=== PATIENT | female | born 2000 | race African-American/Black ===

== ENCOUNTER 2019-11-26 22:07 | Emergency (ER) | payer OTHER ==
[~2019-11-26] VITALS: Ht 162.6 cm; Wt 62.0 kg
[2019-11-26] MEDS ORDERED: KETOROLAC 30MG/ML VIAL IV STA (22:43)
[2019-11-26 23:29] LABS: CHLORIDE 107 mEq/L (98-107)
[2019-11-26 23:30] LABS: CLARITY URINE CLOUDY (CLEAR); COLOR URINE YELLOW (YELLOW); KETONES URINE TRACE (NEGATIVE); LEUKOCYTE ESTERASE URINE 3+ (NEGATIVE); NITRITE URINE NEGATIVE (NEGATIVE); OCCULT BLOOD URINE NEGATIVE (NEGATIVE); PROTEIN URINE NEGATIVE (NEGATIVE); SPECIFIC GRAVITY URINE 1.024 (1.005-1.030)
[2019-11-27 01:48] VITALS: BP 124/73
== END 2019-11-27 01:50 | disposition home or self-care (01) ==
LOC: ER 22:58
DX: S10.81XA Abrasion of other specified part of neck, initial encounter (principal); M25.512 Pain in left shoulder; R07.81 Pleurodynia; R10.30 Lower abdominal pain, unspecified; D72.829 Elevated white blood cell count, unspecified; V49.59XA Passenger injured in collision with other motor vehicles in traffic accident, initial encounter; Y93.89 Activity, other specified; Y92.488 Other paved roadways as the place of occurrence of the external cause
CPT/HCPCS: 36415; 71101; 76705; 80053; 81003; 81025; 83690; 93005; 96374; 99285; J1885